=== PATIENT | male | born 1950 | race African-American/Black ===

== ENCOUNTER 2020-06-14 05:49 | Day surgery (SDC) | payer MEDICARE ==
[2020-06-14] MEDS ORDERED: LACTATED RINGERS 1,000 ML IV SCH (06:00)
[2020-06-14] MEDS ORDERED: ceFAZolin/Water 2 GM/20 ML 2 GM/20 ML SYRINGE IV NR (07:00)
[2020-06-14] MEDS ORDERED: MIDAZOLAM 2 MG/2 ML INJ IV NR (09:54)
[2020-06-14] MEDS ORDERED: fentaNYL 100 MCG/2 ML INJ IV PRN (09:54)
--- NOTE | 2020-06-14 09:54 | Anesthesia Day of Surgery ---
Anesthesia Day of Surgery - Day of Surgery Patient Examined: Yes Patient H&P Reviewed: Yes Patient is NPO: Yes
--- NOTE | 2020-06-14 09:54 | Anesthesia Consultation ---
Anesthesia Consult and Med Hx Date of service: 06/14/20 - Airway Anesthetic Teeth Evaluation: Crowns, Partials (upper) ROM Head & Neck: Adequate Mental/Hyoid Distance: Adequate Mallampati Class: Class II Intubation Access Assessment: Probably Good - Pulmonary Exam CTA: Yes - Cardiac Exam Cardiac Exam: RRR - Pre-Operative Health Status ASA Pre-Surgery Classification: ASA2 Proposed Anesthetic Plan: MAC - Pulmonary Hx Smoking: Yes (1PPD) Hx Respiratory Symptoms: Yes (chronic nonproductive cough) SOB: No Home Oxygen Therapy: No Hx Sleep Apnea: No (LOW KAREN ON PRESCREEN) - Cardiovascular System Hx Hypertension: No (BP elevated in pre-assessment and in preoep, no prior diagnosis) Hx Heart Attack/AMI: No Hx Percutaneous Transluminal Coronary Angioplasty (PTCA): No Hx Cardia Arrhythmia: No - Central Nervous System CVA: No - Endocrine Hx Renal Disease: No Hx Liver Disease: No Hx Insulin Dependent Diabetes: No Hx Non-Insulin Dependent Diabetes: No Hx Thyroid Disease: No - Other Systems Hx Alcohol Use: Yes (R[employer]) Hx Obesity: No - Additional Comments Anesthesia Medical History Comments: No hx anesthetic complications.
[2020-06-14] MEDS ORDERED: BUPIVACAINE/PF (0.25%) 2.5 MG/ML 30 ML VIAL INFILTRATI ONE ×2 (10:12→10:44)
[2020-06-14] MEDS ORDERED: LIDOCAINE (1%) 10 MG/1 ML VIAL 20 ML MDV ONE (10:12)
[2020-06-14] MEDS ORDERED: fentaNYL 100 MCG/2 ML INJ ONE (10:24)
[2020-06-14] MEDS ORDERED: propofoL 200 MG/20 ML VIAL IV ONE ×2 (10:26→11:06)
[2020-06-14] MEDS ORDERED: LIDOCAINE (1%) 10 MG/1 ML VIAL 20 ML MDV INFILTRATI ONE (10:44)
[2020-06-14] MEDS ORDERED: SODIUM CHLORIDE 0.9% IRR 1,500 ML BOTTLE IR ONE (10:45)
[2020-06-14] MEDS ORDERED: KETOROLAC 30 MG/1 ML INJ ONE (11:06)
[2020-06-14] MEDS ORDERED: ONDANSETRON 4 MG/2 ML INJ ONE (11:06)
[2020-06-14] MEDS ORDERED: BACITRACIN ZINC OINT 28.4 GM TP ONE ×2 (11:11→11:12)
--- NOTE | 2020-06-14 11:37 | Short Stay Summary ---
Short Stay Documentation Date of service: 06/14/20 - History Principal diagnosis: soft tissue mass right posterior scalp H&P: obtained from office - Allergies and Medications Current Medications: Allergies No Known Allergies Allergy (Verified 06/12/20 11:55) Home Medications Medication Instructions Recorded Confirmed Last Taken Type Omeprazole 40 mg PO DAILY 06/12/20 06/12/20 06/12/20 History Simvastatin 10 mg PO DAILY 06/12/20 06/12/20 06/12/20 History Active Medications Fentanyl (Sublimaze) 50 mcg IV Q5MIN PRN PRN Reason: Pain , Severe (7-10) Stop: 06/14/20 23:00 Cefazolin Sodium (Ancef/Sterile Water 2 Gm/20 Ml) 2 gm in 20 mls @ 80 mls/hr IV PREOP NR Stop: 06/14/20 23:00 Lactated Ringer's (Lactated Ringers) 1,000 mls @ 100 mls/hr IV DIRECT BAIRON Stop: 06/14/20 23:59 Last Admin: 06/14/20 09:45 Dose: 100 mls/hr Documented by: Midazolam HCl (Versed) 2 mg IV PREOP NR Stop: 06/14/20 23:00 Last Admin: 06/14/20 09:55 Dose: 2 mg Documented by: - Brief post op/procedure progress note Date of procedure: 06/14/20 Pre-op diagnosis: soft tissue mass right posterior scalp Post-op diagnosis: same Procedure: excision soft tissue mass right posterior scalp Anesthesia: MAC, local Findings: 3 cm lobulated soft tissue mass consistent with lipoma, abutting underlying muscle Surgeon: KELLE MCCLELLAN Estimated blood loss: minimal Pathology: list (soft tissue mass right posterior scalp) Specimen disposition: to lab Condition: stable - Hospital course Hospital course: Pt observed in PACu and discharged to home when criteria met - Disposition Condition at discharge: Good Disposition: DC-01 TO HOME OR SELFCARE Short Stay Discharge Plan Activity: no restrictions Diet: regular Wound: per your surgeon's advice Additional Instructions: May remove outer dressing over incision in 2 days. Shower and clean area of incision with soap and water. Pat it dry and apply a thin layer of bacitracin (provided) to the incision. May keep uncovered. There are 5 blue stitches in the skin, do not remove them. Do not submerge incision in bath/hottub/or pool until seen by surgeon. Follow up with: RAULITO GARCIA MD [Primary Care Provider] - 7 Days KELLE MCCLELLAN DO [Staff Physician] - 14 Days Prescriptions: HYDROcodone/APAP 5-325 [[place] 5/325] 1 each PO Q4HR PRN #10 tablet PRN Reason: Pain
[2020-06-14 12:23] VITALS: BP 145/89
--- NOTE | 2020-06-14 14:12 | Post Anesthesia Evaluation ---
- Post Anesthesia Evaluation Patient Participated: Yes Airway Patent: Yes Stable Respiratory Function: Yes Nausea/Vomiting: No Temp > 96.8F: Yes Pain Manageable: Yes Adequeate Hydration: Yes Anesthesia Complications: No
--- NOTE | 2020-06-14 23:54 | Operative Report ---
Operative Report Operative Report: Date of procedure: 06/14/20 Pre-op diagnosis: soft tissue mass right posterior scalp Post-op diagnosis: same Procedure: excision soft tissue mass right posterior scalp Anesthesia: MAC, local Findings: 3 cm lobulated soft tissue mass consistent with lipoma, abutting underlying muscle Surgeon: KELLE MCCLELLAN Estimated blood loss: minimal Pathology: list (soft tissue mass right posterior scalp) Specimen disposition: to lab Condition: stable - Hospital course Hospital course: Pt observed in PACu and discharged to home when criteria met HPI and indication: Patient is a 70-year-old male who presented to the surgery clinic for evaluation of a mass on his right posterior scalp. The patient complained of pain in that area and it was recommended that the mass be excised. All risk, benefits, alternatives to surgery discussed with patient questions answered. Consent was obtained. Procedure in detail: The patient was identified in the preoperative area, taken back to the operating room and placed on the operating room table in supine position. The area of the mass had been marked prior to surgery and was confirmed. After anesthesia was induced the patient was placed in right lateral decubitus position and the hairs overlying the mass clipped. The right posterior scalp was then prepped and draped in usual sterile fashion a timeout performed. Local anesthetic was infiltrated to skin at the intended incision site. A transverse incision was made using a 15 blade over the area of the mass. Dissection was then carried down through the skin and subcutaneous tissue using electrocautery. The mass was identified and circumferentially dissected free from the underlying and surrounding tissue using a combination of blunt dissection with a hemostat and electrocautery. The mass was multilobulated and was abutting the underlying muscle. The mass was very carefully dissected free from the underlying muscle and excised. The mass measured 3 cm and was multilobulated soft tissue consistent with a lipoma. This was passed off the table as a specimen. The cavity was then checked for hemostasis which was very carefully ensured. The wound was irrigated and there was no bleeding identified. The incision was then approximated using 2-0 Prolene interrupted sutures. Bacitracin was applied over the incision. This was covered with a 4 x 4 gauze and wrapped with Kerlix. The patient tolerated the procedure well. All sharps, instruments, and sponge counts were correct x2 at the end of the case. The patient was awoken from anesthesia and taken to PACU in stable condition.
== END 2020-06-14 12:43 | disposition home or self-care (01) ==
LOC: OR 05:49
PROVIDERS: ATTEND Surgery
DX: D17.0 Benign lipomatous neoplasm of skin and subcutaneous tissue of head, face and neck (principal); Z11.59 Encounter for screening for other viral diseases; M79.89 Other specified soft tissue disorders; F17.210 Nicotine dependence, cigarettes, uncomplicated; E78.00 Pure hypercholesterolemia, unspecified; I10 Essential (primary) hypertension; K21.9 Gastro-esophageal reflux disease without esophagitis; Z72.89 Other problems related to lifestyle; Z79.899 Other long term (current) drug therapy; Z98.890 Other specified postprocedural states
CPT/HCPCS: 21012; 88304; J0690; J1885; J2250; J2405; J2704; J3010; J7120; U0003; 88307

== ENCOUNTER 2022-07-14 07:48 | Day surgery (SDC) | payer MEDICARE ==
[~2022-07-14 07:48] MED LIST: LACTATED RINGERS 1,000 ML IV SCH; MIDAZOLAM 2 MG/2 ML INJ IV NR; ceFAZolin/STERILE WATER 2 GM/20 ML SYRINGE IV NR
[2022-07-14] MEDS ORDERED: LIDOCAINE (2%) 20 MG/1 ML VIAL 20 ML MDV INFILTRATI ONE ×2 (11:04→11:11)
[2022-07-14] MEDS ORDERED: BUPIVACAINE/PF (0.5%) 5 MG/1 ML 30 ML VIAL INFILTRATI ONE ×2 (11:05→11:11)
[2022-07-14] MEDS ORDERED: SODIUM CHLORIDE 0.9% IRR 1,500 ML BOTTLE IR ONE (11:11)
[2022-07-14 11:47] VITALS: BP 182/96
--- NOTE | 2022-07-14 12:26 | Procedure Note ---
Date of procedure: 07/14/22 Pre-op diagnosis: scalp cyst Post-op diagnosis: same Procedure: excision of scalp cyst Findings: Patient was identified in the preoperative area and taken back to the minor procedure room. He was positioned on the stretcher in supine position. The scalp cyst had been marked in the preoperative area and the left parietal scalp region. The hairs were clipped and the area prepped and draped in the usual sterile fashion. Timeout was performed. Local anesthetic was infiltrated into the skin at the intended incision site. An elliptical incision was made in the skin using a 15 blade. The central pore was incorporated in the incision. Using blunt dissection with a mosquito clamp the cyst was carefully dissected from the surrounding tissue. Once the entire cyst wall was freed, the cyst was removed from the wound as a specimen. It measured approximately 1 cm. This was passed off the table. The wound was then irrigated and hemostasis very carefully ensured. The incision was approximated using 4-0 Monocryl subcutic ular interrupted stitch and glue. At the end of the case all sponge, instrument, sharp counts were correct x2. The patient tolerated the procedure very well. He was discharged home in stable condition. Anesthesia: local Surgeon: KELLE MCCLELLAN Estimated blood loss: minimal Pathology: list (scalp cyst) Specimen disposition: to lab Condition: stable Disposition: other (HOME)
== END 2022-07-14 07:49 | disposition home or self-care (01) ==
LOC: OR 07:48
PROVIDERS: ATTEND Surgery
DX: R22.0 Localized swelling, mass and lump, head (principal); L72.0 Epidermal cyst; F17.210 Nicotine dependence, cigarettes, uncomplicated; E78.00 Pure hypercholesterolemia, unspecified; K21.9 Gastro-esophageal reflux disease without esophagitis; Z79.899 Other long term (current) drug therapy; Z98.890 Other specified postprocedural states
CPT/HCPCS: 11421; 88304; J3490; J7120; J0690; J2250